=== PATIENT | male | born 2005 | race Caucasian/White ===

== ENCOUNTER 2025-09-06 20:30 | Emergency (ER) | payer OTHER, SELFPAY ==
[2025-09-06 20:32] VITALS: BP 136/74
--- NOTE | 2025-09-06 21:52 | ED.MUSCINJ ---
HPI-Injury
General
Chief Complaint: Musculo-Skeletal Complaint
Source: patient
Exam Limitations: none
Time Seen by Provider: 09/06/25 21:04
Nursing documentation reviewed up to this point in time: agreed with
History of Present Illness-Injury
Is this injury a work related problem?: Yes
Is pt an associate of [facility]/[place]?: No
Initial Injury comments:
Patient is to emergency department for evaluation of right ankle pain. 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 He denies hitting his head. Complains of pain to right lateral ankle. To emergency
department accompanied by mother for evaluation.
Past History
Past History
ED Past Medical History: Asthma and Psychiatric (ADHD anxiety/depression)
Social History
Tobacco: Non-smoker
Alcohol: None
Review of Systems
Review of Systems
Allergies reviewed?: Yes
All Other Systems: ROS reviewed and negative except as documented in HPI and ROS
Constitutional: Reports no symptoms
ABD/GI: Reports no symptoms
Musculoskeletal: Reports joint pain (Pain to right lateral ankle)
Skin: Reports no symptoms
Neurological: Reports no symptoms
Psychiatric: Reports no symptoms
Musculoskeletal Injury Exam
Musculoskeletal Injury Exam
Right Lateral Ankle:
Pain with Movement?: Moderate
Tender to palpation?: Moderate
Soft tissue swelling?: Mild
External deformity and angulation?: None
Joint effusion?: None
Contusion?: None
Hematoma-local bleeding into tissue?: None
Strain- Sprain- Tear (Connective tissue injury)?: Moderate
Crepitus with movement?: No
Joint instability?: No
Malalignment/deformity?: No
Range of motion: Limited
Distal skin color and temperature: normal-warm & good color
Capillary Refill: normal
Normal distal neurovascular exam?: Yes
Peripheral Pulses: posterior tibial (right): 3+ and dorsalis pedis (right): 3+
Phy Exam
General Physical Exam
General Presentation: well appearing and mild distress
General age: appears stated age
General Skin: warm and dry
General Habitus: normal
General Mental: alert
Musculoskeletal Exam
Musculoskeletal Exam: neuro vasc intact and other (Achilles intact no tenderness base of fifth proximal tib-fib.)
Skin Exam
Skin Exam: normal color, warm/dry and no rash
Psychiatric Exam
Psychiatric Exam: normal mood/affect
Injury Course
Orders/Labs/Results
Orders:
Orders
09/06/25 20:32
CR Ankle - Right Min 3 Views * Urgent
Comment:
Reason For Exam: Injury
09/06/25 21:15
Tib/Fib, Right 2 View [CR Leg Tibia/fibula Right 2 Vw] Urgent
Comment:
Reason For Exam: fall
09/06/25 21:50
Crutches-Treatment ONCE
Ortho Boot Right- Treatment ONCE
Short or tall?: Tall
*Radiology
Radiology exam reviewed: radiology read reviewed
*Pulse Oximetry
SaO2: 99
Oxygen Mode of Delivery: Room air
Patient hypoxic: no
*Critical Care Note
Total Time (30-74mins, 75-104mins- exclusive of procedures): Not Applicable
Update Note
Update Note:
Patient to the emergency department meant with complaint of right lateral ankle pain after a slip and fall earlier today. X-rays completed, confirmed with distal fibula fracture. He was placed in an orthopedic boot and crutches. He will elevate,
ice, ibuprofen as needed. He was given the number for orthopedics. He will call in a.m. to schedule an appointment for next week. Given instructions on signs and symptoms to return to the emergency department he is agreeable to this plan.
ED Attending Note
-
Portions of this chart may have been created with voice recognition software.� Occasional wrong word or��sound alike� substitutions may have occurred due to the inherent limitations of voice recognition software.
Discharge Plan
Departure
Patient Disposition: Home (Routine Discharge)
Date of Disposition: 09/06/25
Time of Disposition: 21:50
Patient with high blood pressure during this ER visit?: No
Condition: Good
Covid-19: Not Applicable
Discharge Problem:
Fibula fracture
Instructions: How to Use Crutches, Ibuprofen, Using Cold for Pain, Ankle Fracture ED
Referrals:
Vy Ball DO [Family Provider, Family Practice]
Herbert Bowers MD [Active, Orthopedics] - Call in 1-3 days for appt
Activity Restrictions/Additional Instructions:
No Driving
Interventions
Interventions:
*General Assessment Last Done: 09/06/25 22:00
*Neglect/Abuse Screening Last Done: 09/06/25 22:00
*Risk Screen - Suicide (C-SSRS) Last Done: 09/06/25 22:00
*Nursing Disposition Last Done: 09/06/25 22:19
ED-Musculoskeletal Assessment Last Done: 09/06/25 22:00
Discharge Date and Time
Discharge Date/Time: 09/06/25 22:20
Print Language: HUNGARIAN
== END 2025-09-06 22:20 | disposition home or self-care (01) ==
LOC: EMR 20:30
PROVIDERS: EMERGENCY PHYSICIAN Emergency Medicine; FAMILY PHYSICIAN Internal Medicine
DX: S82.831A Other fracture of upper and lower end of right fibula, initial encounter for closed fracture (principal); W01.0XXA Fall on same level from slipping, tripping and stumbling without subsequent striking against object, initial encounter; Y99.0 Civilian activity done for income or pay; J45.909 Unspecified asthma, uncomplicated
CPT/HCPCS: 99283; 73590; 73610

== ENCOUNTER 2025-09-13 06:13 | Day surgery (SDC) | payer OTHER, SELFPAY ==
[2025-09-13] VITALS (12 sets, daily range): BP systolic 102–141; BP diastolic 54–88; BMI 34.5
[2025-09-13] MEDS: TYLENOL 1000 MG PO ×2 (08:18→15:20)
[2025-09-13] MEDS: MOBIC 15 MG PO (08:19)
[2025-09-13] MEDS: VERSED SYRUP 20 MG PO (08:29)
[2025-09-13] MEDS: NORMOSOL-R/PLASMALYTE-A 1000 IV (09:05)
--- NOTE | 2025-09-13 09:40 | PTCARENOTE ---
Pt very anxious and having multiple panic attacks. Versed 20 mg ordered and given to pre medicate for IV placement. Multiple relaxation techniques utilized. Mom at bedside and patient has a comfort stuffed animal. IV placed at 0905
[2025-09-13] MEDS: SUBLIMAZE 50 MCG IV (13:45)
[2025-09-13] MEDS: SUBLIMAZE 25 MCG IV (13:55)
--- NOTE | 2025-09-14 09:02 | OR.RPT ---
Operative Report
Operative Report
Operative Report
Patient Name: Paul Wilder

Date of Surgery: 09/13/2025
Surgeon: Jose Alejandra DPM
Parking Meter Attendant: Jose Palacios DPM
Pre-operative diagnosis:
Right bimalleolar equivalent ankle fracture with syndesmotic injury (PER-type)
Post-operative diagnosis:
Same as preoperative
Procedure:
Open reduction and internal fixation of right bimalleolar equivalent ankle fracture (CPT 02373)
Open reduction and internal fixation of right distal tibiofibular syndesmosis (CPT 41600)
Anesthesia:
General anesthesia with regional block
Hemostasis:
Right thigh tourniquet inflated to 300mmHg for the entirety of the procedure
Estimated blood loss:
Minimal
Specimens:
None
Implants:
North East 1/3 tubular plate with combination of locking and non-locking screws
Two Arthrex TightRope syndesmotic fixation devices
Complications:
None
Indications for Procedure:
The patient is a 20-year-old male who sustained a right ankle injury resulting in a bimalleolar equivalent fracture pattern. Radiographic evaluation demonstrated a high spiral oblique fracture of the distal fibula consistent with a
pronation-external rotation (PER) injury, with associated distal tibiofibular syndesmotic disruption. Given the unstable nature of the fracture pattern and the risk of malunion and post-traumatic arthritis with nonoperative management, surgical
intervention was recommended. Risks, benefits, and alternatives were discussed with the patient, including infection, nonunion, malunion, hardware failure, stiffness, and the potential need for further surgery. Patient has a history of severe
anxiety and depression, due to this informed consent was obtained from his mother.
Description of Procedure:
The patient was brought to the operating room and placed supine on the operating table. After induction of general anesthesia, a well-padded right thigh tourniquet was applied. The right lower extremity was prepped and draped in the usual sterile
fashion. A formal surgical time-out was performed confirming the correct patient, procedure, and operative site. The extremity was exsanguinated and the tourniquet inflated.
Attention was first directed to the lateral ankle. A longitudinal incision was made over the distal fibula and carried proximally to allow adequate exposure of the high fibula fracture. Blunt dissection was carried carefully through the subcutaneous
tissues with protection of the superficial peroneal nerve and all other neurovascular structures. The fibular fracture was identified and cleared of hematoma and interposed soft tissue.
An anatomic reduction of the fibula was obtained, restoring length, alignment, and rotation. A [place] East 1/3 tubular plate was contoured and applied to the lateral aspect of the fibula. Fixation was achieved using a combination of non-locking screws
to achieve compression and locking screws for additional stability. Fluoroscopic imaging confirmed appropriate reduction, congregational of fibular length, and satisfactory hardware positioning.
Following fixation of the fibula, the ankle mortise was stressed under fluoroscopy and demonstrated persistent distal tibiofibular syndesmotic instability. The syndesmosis was anatomically reduced under direct fluoroscopic visualization. Two Arthrex
TightRope devices were placed through the fibular plate into the distal tibia in standard fashion, providing stable fixation of the syndesmosis. Final fluoroscopic images confirmed congregational of the ankle mortise, appropriate syndesmotic alignment,
and stable fixation.
The wounds were copiously irrigated with sterile saline. The tourniquet was deflated and hemostasis achieved. The deep tissues and subcutaneous layers were closed in a layered fashion with 2-0 vicryl for deep tissues, 3-0 vicryl for subcutaneous
tissues followed by 3-0 prolene for skin closure. Sterile dressings were applied, and the patient was placed into a well-padded posterior splint with the ankle in neutral position.
The patient tolerated the procedure well and was transferred to the post-anesthesia care unit in stable condition with intact neurovascular status to the right lower extremity.
Postoperative Plan:
Strict non-weightbearing to the right lower extremity
Posterior splint with elevation and icing
Pain control per protocol
DVT prophylaxis as indicated
Follow-up in 10�14 days for wound check and repeat radiographs
Transition to boot and initiation of [id number] exercises as healing allows
== END 2025-09-13 15:50 | disposition home or self-care (01) ==
LOC: SDS 06:13
PROVIDERS: ATTENDING PHYSICIAN Student in an Organized Health Care Education/Training Program
DX: S82.841A Displaced bimalleolar fracture of right lower leg, initial encounter for closed fracture (principal); S93.439A Sprain of tibiofibular ligament of unspecified ankle, initial encounter; X58.XXXA Exposure to other specified factors, initial encounter
CPT/HCPCS: 27814; 27829; 73610; 76000; C1713